=== PATIENT | male | born 1995 | race African-American/Black ===

== ENCOUNTER 2021-05-05 17:48 | Emergency (ER) | payer MEDICAID ==
[~2021-05-05] VITALS: Ht 177.8 cm; Wt 68.0 kg
[2021-05-05 18:02] VITALS: BP 120/70
== END 2021-05-05 23:44 | disposition left against medical advice (07) ==
LOC: ER 17:48
DX: K62.5 Hemorrhage of anus and rectum (principal)
CPT/HCPCS: 99281

== ENCOUNTER 2021-05-17 01:45 | Emergency (ER) | payer MEDICAID ==
[~2021-05-17] VITALS: Ht 177.8 cm; Wt 69.0 kg
[2021-05-17 01:54] VITALS: BP 107/68
[2021-05-17] MEDS ORDERED: DOCU-138 MT (02:21)
[2021-05-17] MEDS ORDERED: HYDR30CR80 TP (02:21)
== END 2021-05-17 02:31 | disposition home or self-care (01) ==
LOC: ER 02:19
DX: K62.89 Other specified diseases of anus and rectum (principal); K59.00 Constipation, unspecified
CPT/HCPCS: 99283